=== PATIENT | female | born 1950 | race Caucasian/White ===

== ENCOUNTER 2017-05-03 00:59 | Emergency (ER) | payer OTHER ==
[~2017-05-03] VITALS: Ht 162.6 cm; Wt 55.0 kg
[2017-05-03 01:10] VITALS: TEMP 37.8; Ht 162.6 cm; Wt 55.0 kg
[2017-05-03] MEDS ORDERED: ACETAMINOPHEN 500 MG TAB PO STA (01:43)
[2017-05-03 01:46] VITALS: O2SAT 92
[2017-05-03 01:58] LABS: HEMATOCRIT 42.8 % (37-47); MEAN CELL VOLUME 89.7 fL (80-100); MEAN CORPUSCULAR HGB CONC 34.6 g/dl (32-36); PLATELET COUNT 147 K/uL (130-400); RED BLOOD COUNT 4.77 M/uL (4.2-5.4); WHITE BLOOD COUNT 9.64 K/uL (4.8-10.8)
[2017-05-03 02:04] LABS: INR 1.1 (0.9-1.1); PARTIAL THROMBOPLASTIN RATIO 1.2; PROTHROMBIN TIME (PATIENT) 11.1 SECONDS (9.0-12.0)
[2017-05-03 02:30] LABS: ALB/GLOB RATIO 0.8 (0.9-2); ALKALINE PHOSPHATASE 65 U/L (45-117); ALT/SGPT 31 U/L (12-78); AST/SGOT 50 U/L (15-37); BLOOD UREA NITROGEN 39 mg/dl (7-18); CALCIUM 9.3 mg/dl (8.5-10.1); CARBON DIOXIDE 32 mmol/L (21-32); CHLORIDE 91 mmol/L (98-107); CREATININE 1.27 mg/dl (0.60-1.20); GLUCOSE 151 mg/dl (70-99); POTASSIUM 4.3 mmol/L (3.5-5.1); SODIUM 128 mmol/L (136-145)
[2017-05-03 02:38] LABS: BASO % 0.1 %; BASO ABS # 0.01 K/uL (0-0.2); COMPLETE YES; IG% 0.2 %; LYMPH % 4.9 %; LYMPH ABS # 0.47 K/uL (1.2-3.4); MONO % 11.3 %; NEUT % 83.5 %; VACUOLIZATION 1+
[2017-05-03 03:09] VITALS: BP 92/50
[2017-05-03 04:00] VITALS: PULSE 86; O2SAT 90
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
[2017-05-03 04:51] LABS: CKMB/CK RATIO 0.2 (0-3.0)
--- NOTE | 2017-05-03 06:36 | DIAGNOSTIC IMAGING REPORT ---
CHEST 2 VIEWS ROUTINE CLINICAL HISTORY: hypoxia COMPARISON STUDY: None FINDINGS: The heart is normal in size. Patient is hyperinflated. There are trace pleural effusions. There is mild nonspecific interstitial thickening with a basilar predominance. There is no lobar consolidation[ IMPRESSION: 1. Hyperexpansion with mild residual thickening with a basilar predominance. Trace pleural effusions. No evidence of lobar consolidation. Electronically signed by: Naveed Stevenson M.D. 05/03/2017 6:34 AM Dictated Date/Time: 05/03/2017 6:33 AM
== END 2017-05-03 04:45 | disposition left against medical advice (07) ==
LOC: EDBD 00:59 → C.EDB 01:04
DX: R09.02 Hypoxemia (principal); J40 Bronchitis, not specified as acute or chronic; E87.1 Hypo-osmolality and hyponatremia; J44.9 Chronic obstructive pulmonary disease, unspecified